=== PATIENT | female | born 1995 | race Caucasian/White ===

== ENCOUNTER 2018-10-28 19:49 | Emergency (ER) | payer OTHER ==
[~2018-10-28] VITALS: Ht 177.8 cm; Wt 106.6 kg
[2018-10-28] MEDS ORDERED: IBUPROFEN200 MG PO (20:19)
[2018-10-28] MEDS ORDERED: NORCO 5-325 TA1 EACH PO (23:03)
== END 2018-10-28 23:38 | disposition home or self-care (01) ==
LOC: ED 19:49
DX: S16.1XXA Strain of muscle, fascia and tendon at neck level, initial encounter (principal); S29.012A Strain of muscle and tendon of back wall of thorax, initial encounter; F17.200 Nicotine dependence, unspecified, uncomplicated; V49.9XXA Car occupant (driver) (passenger) injured in unspecified traffic accident, initial encounter
CPT/HCPCS: 70450; 71260; 72125; 99283-25